=== PATIENT | male | born 1975 | race Caucasian/White ===

== ENCOUNTER 2023-12-06 14:33 | Emergency (ER) | payer OTHER, SELFPAY ==
[2023-12-06 14:35] VITALS: BP 161/98
[2023-12-06 14:55] LABS: % Basophils 0.8 % (0-2); % Eosinophils 1.7 % (0-6); % Immature Granulocytes 0.2 % (0-0.5); % Neutrophils 65.3 % (42.2-75.2); Absolute Basophils 0.1 10^3/uL (0-0.2); Absolute Eosinophils 0.1 10^3/uL (0-0.7); Absolute Lymphocytes 1.7 10^3/uL (1.2-3.4); Absolute Monocytes 0.4 10^3/uL (0.1-0.6); Absolute Neutrophils 4.1 10^3/uL (1.4-6.5); Hematocrit 44.7 % (39.0-52.0); Hemoglobin 15.5 g/dL (13.0-18.0); Mean Corp Hgb Conc. 34.7 g/dL (33.0-37.0); Mean Corpuscular Volume 86.5 fL (80.0-94.0); Mean Platelet Volume 11.1 fL (7.4-10.4); Nucleated Red Blood Cells % 0 % (-); Platelet Count 211 10^3/uL (130-400); Red Blood Cell Count 5.17 10^6/uL (4.70-6.10); Red Cell Dist. Width 12.2 % (11.5-14.5); White Blood Cell Count 6.3 10^3/uL (4.8-10.8)
[2023-12-06 15:10] LABS: ALT (SGPT) 35 U/L (0-50); AST (SGOT) 40 U/L (17-59); Albumin 4.4 g/dl (3.5-5.0); Alkaline Phosphatase 80 U/L (38-126); Blood Urea Nitrogen 33 mg/dl (9-20); Calcium 9.6 mg/dl (8.4-10.2); Carbon Dioxide 30 mmol/L (22-30); Chloride 102 mmol/L (98-107); Glucose 88 mg/dl (70-99); Potassium 4.4 mmol/L (3.5-5.1); Sodium 141 mmol/L (135-145); Total Bilirubin 0.8 mg/dl (0.2-1.3); Total Protein 6.9 g/dl (6.3-8.2); eGFR > 60.00
[2023-12-06 15:36] LABS: Troponin I < 0.012 ng/ml
--- NOTE | 2023-12-06 15:48 | ED.GENMED ---
History of Present Illness
General
Chief Complaint: Chest Pain
Source: patient
Exam Limitations: none
Time Seen by Provider: 12/06/23 15:34
History of Present Illness
History of Present Illness:
48-year-old otherwise quite healthy male presents with the onset of chest discomfort that radiates to his scapula on the left side. This started at 6 AM this morning has been constant since then. He states he has had a history of high cholesterol
but is not currently being treated. He is not a smoker. No recent travel or surgery. No known injury. Pain is not pleuritic. It is a constant ache. No radiation to the neck or arm.
Past History
Past History
ED Past Medical History: None
ED Past Surgical History: None
Social History
Tobacco: Non-smoker
Alcohol: None
Drug: None
Personal:
Living: with family
Employment: Employed
Phy Exam
Physical Exam
Physical Exam:
General: Well appearing male NAD
HEENT: NC/AT,
Heart: RRR, no murmurs
Lungs; CTA bilaterally
MSK: no reproducible tenderness to chest or back.
Vascular: 2+ radial pulses bilateral wrist
Scores
Heart Score for Chest Pain Patients
STEMI patient?: No
History: Slightly or Non-Suspicious
ECG: Normal
Age: >45 - <65 years
Risk Factors: No Risk Factors
Troponin: </= Normal Limit
Heart Score for Chest Pain Patients: 1
Heart Score Risk: 2.5% MACE over next 6 weeks
Course
Orders/Labs/Results
Orders:
Orders
12/06/23 14:35
Electrocardiogram (*1) Urgent
Reason for Study: Chest Pain
EKG- Treatment ONCE
12/06/23 14:43
Complete Blood Count/With Diff Urgent
Comprehensive Metabolic Panel Urgent
Troponin I Urgent
12/06/23 15:44
CT Chest Pe Study Urgent
Comment:
Reason For Exam: left chest/scapular pain
Abnormal Lab Results
12/06/23
14:43
MPV 11.1 H fL
(7.4-10.4)
BUN 33 H mg/dl
(9-20)
12/06/23 14:43
12/06/23 14:43
Vital Signs
Initial and Last Documented VS:
Initial Vital Signs
Temp Pulse Resp BP Pulse Ox
98.2 F 59 16 161/98 99
12/06/23 14:35 12/06/23 14:35 12/06/23 14:35 12/06/23 14:35 12/06/23 14:35
Last Documented Vital Signs
Temp Pulse Resp BP Pulse Ox
98.2 F 58 17 150/86 100
12/06/23 14:35 12/06/23 17:46 12/06/23 17:46 12/06/23 17:46 12/06/23 17:46
MDM/Problems Addressed
Differential Diagnosis Includes:
Chest and scapular pain. Question musculoskeletal pain versus PE versus dissection versus pneumothorax versus ACS
EKG shows sinus rhythm without ischemic changes. Troponin ordered at 230 this afternoon was undetectable. The onset of pain was 6 AM this morning. Given otherwise healthy status unlikely to be ACS however the pain has been constant and is
persistent concern for other etiology such as PE or dissection. CT scan ordered.
*Critical Care Note
Total Time (30-74mins, 75-104mins- exclusive of procedures): Not Applicable
Update Note
Update Note:
Troponin undetectable. CT negative and normal for pulmonary embolism. Patient with atypical chest discomfort constant in nature negative workup. Recommend follow-up with family doctor and/or cardiology. Return precautions were given. Suspect
possible chest wall discomfort
ED Attending Note
-
Portions of this chart may have been created with voice recognition software.� Occasional wrong word or��sound alike� substitutions may have occurred due to the inherent limitations of voice recognition software.
Discharge Plan
Departure
Patient Disposition: Home (Routine Discharge)
Date of Disposition: 12/06/23
Time of Disposition: 17:49
Patient with high blood pressure during this ER visit?: No
Discharge Problem:
Chest pain, atypical
Instructions: Chest Pain PCP Follow Up
Prescriptions:
No Action
solifenacin 5 mg Tablet
5 mg PO DAILY
Referrals:
Tate Conti MD [Family Provider] -
Activity Restrictions/Additional Instructions:
Please return here for worsening symptoms otherwise follow-up with your family doctor
Interventions
Interventions:
*Risk Screen - Suicide Last Done: 12/06/23 14:35
*General Assessment Last Done: 12/06/23 15:32
*Neglect/Abuse Screening Last Done: 12/06/23 14:35
ED- Fall Risk Assessment Last Done: 12/06/23 15:32
*Nursing Disposition Last Done: 12/06/23 17:46
ED- Cardiac Assessment Last Done: 12/06/23 15:32
Discharge Date and Time
Print Language: [id number]
[2023-12-06 17:45] VITALS: BP 150/86
[2023-12-06 17:46] VITALS: BP 150/86
== END 2023-12-06 18:01 | disposition home or self-care (01) ==
LOC: EMR 14:33
PROVIDERS: Emergency Medicine; EMERGENCY PHYSICIAN Emergency Medicine; FAMILY PHYSICIAN Family Medicine
DX: R07.89 Other chest pain (principal); M25.512 Pain in left shoulder; E78.00 Pure hypercholesterolemia, unspecified
CPT/HCPCS: 99284; 71275; 80053; 84484; 85025; 93005; Q9967